=== PATIENT | female | born 1970 | race Caucasian/White ===

== ENCOUNTER → 2018-11-17 | Outpatient (CLI) | payer OTHER ==
[~2018-11-17] VITALS: Ht 292.1 cm; Wt 72.0 kg
[~2018-11-17] MED LIST: AMBIEN 5 MG TABL5 M1 PO; CELEBREX 200 M200 MG PO; FISH OIL 1,0001 EAC1 PO; HUMIRA PEN40 MG/0.4 SUBQ; LEVONORGESTREL1 EAC1 PO; LEXAPRO 10 MG T10 M2 PO; LIALDA1.2 GM PO; MULTI VITAMIN1 EACH PO
--- NOTE | ~2018-11-17 | HPC ---
[facility] [place] [address] PAIN MANAGEMENT CONSULTATION Name: WHITEGERMAN B Room #: [facility].#: [id number] Admission: 11/17/18 ������������������ Attend Phys: Sim Kilgore MD Discharge: ������������������ Date of : 74 Report #: [id number] THIS REPORT FOR: //name// CC: [facility] physician/PCP Dandre Kilgore DATE OF SERVICE: 11/17/2018 CHIEF COMPLAINT: Lumbosacral pain with some radiation into the hip. HISTORY OF PRESENT ILLNESS: The patient is a karl 48-year-old whom I am seeing today at the request of Dr. Dandre Quintero. She has been dealing with low back pain for about 2 years. She describes it as an exhausting debilitating aching, tender, gnawing sensation across her lumbosacral segment that she scores as a 6/10. It is made worse with sitting, any sort of impact exercise or spending too much time resting or sleeping. In fact, she says too much of any activity seems to make her back feel worse. She has tried Advil with limited improvement. She is extremely active. 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 A plain film x-ray report is available for my review. I was not able to look at the actual x-rays. She has a moderate disk space endplate degenerative change at L4-L5 and mild facet osteoarthritis and at L5-S1 there is a marked intervertebral disk space degenerative change with mild facet osteoarthritis. The facet changes appear to be quite minimal. MEDICATIONS: Humira, Lialda, Lexapro, control pills, vitamins, turmeric and zolpidem. ALLERGIES: None. PAST MEDICAL HISTORY: Positive for ulcerative colitis. She has had favorable response to the Humira. She has a history of gastroesophageal reflux disease without esophagitis, migraine, unspecified and has suffered a single episode of major depressive disorder in the past. 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 She denies use of tobacco, drinks alcohol once a week in a social setting. Impacted pain scores are high. She scores 7/10 for general activity, mood, walking, sleep and enjoyment of life. PHYSICAL EXAMINATION: A pleasant female, 5 feet 5 inches, 158 pounds, BMI of 28.4, blood pressure 120/86, heart rate 90, respirations 16, O2 sat 90. She is able to independently move from sitting to standing position, [place] [address] PAIN MANAGEMENT CONSULTATION Name: WHITEGERMAN Room #: [facility]#: [id number] Admission: 11/17/18 ������������������ Attend Phys: Sim Kilgore MD Discharge: ������������������ Date of : 74 Report #: [id number] antalgic features to her gait. She has excellent range of motion of the lumbar spine with some increase in pain in flexion, more so than in extension. Extension actually releases some pain. There is no tenderness around the sacroiliac joints. There is mild tenderness across the lumbosacral segment to palpation. There is no muscle spasm appreciated. Straight leg raising is negative. Sensation and strength are normal within the lower extremities. IMPRESSION: Axial low back pain. By exam, this appears to be more discogenic than facet. I would recommend an epidural steroid injection as a trial, but would first give her a short course of a nonsteroidal anti-inflammatory drug. We discussed celecoxib 200 mg once daily as she has ulcerative colitis. She has been told by her cvicu rn, Dr. Helder Pearl, that she could use some NSAIDs. If I was going to use one, I would consider the celecoxib for its once a day dosing in its selectivity. She can take this both p.r.n. and on a daily basis if the pain is severe. We discussed at length the side effects associated with the use of anti-inflammatory medications. Epidural injection if it is helpful should provide early relief with a good duration of response. I plan to see her back in a couple of weeks for the injection. ��������������������������������������������� ���������������������������������������� By: ��������������������������������������������� [id number] Sim Kilgore MD /nt
[2018-11-17 15:31] VITALS: BP 120/86
--- NOTE | 2018-11-17 15:51 | NUR ---
Pain Clinic Assessment: 1. History of Osteoarthritis: Not Applicable History of Rheumatoid Arthritis: Not Applicable 2. Height: 5 ft. 55 in. 292.1 cm. Weight: 158.8 lb. oz. 72.031 kg. Patient's BMI: 8.4 3. Vital Signs: BP: 120/86 Pulse: 90 Resp: 16 Temp: 02 Sat: 99 ECG Mon: 4. Pain Intensity: 6 5. Fall Risk: Dizziness: N Needs help standing or walking: N Fallen in the last 3 months: N Fall risk comments: 6. Patient on Blood Thinner: None 7. History of Hypertension: N 8. Opioid Therapy greater than 6 weeks: N Opiate Contract Signed: 9. Risk Assessment Tool Provided: MODERATE RISK 01/02 10. Functional Assessment Tool: 11. Recreational Drug Use: Never Drug Type: Tobacco Use: Never Smoker Tobacco Type: Amount or Packs/day: How Many Years: Alcohol Use: Yes Frequency: Weekly Quant: 1
== END ==
LOC: PAIN 11-13 14:09
DX: M47.817 Spondylosis without myelopathy or radiculopathy, lumbosacral region (principal); K21.9 Gastro-esophageal reflux disease without esophagitis; G43.909 Migraine, unspecified, not intractable, without status migrainosus; F32.9 Major depressive disorder, single episode, unspecified; Z79.899 Other long term (current) drug therapy

== ENCOUNTER → 2018-12-01 | Outpatient (CLI) | payer OTHER ==
[~2018-12-01] VITALS: Ht 165.1 cm; Wt 72.8 kg
--- NOTE | ~2018-12-01 | HPC ---
[facility] [address] [address] PAIN MANAGEMENT CONSULTATION Name: WHITEGERMAN [id number] Admission: 12/01/18 ������������������ Attend Phys: Sim Kilgore MD Discharge: ������������������ Date of : 74 Report #: [id number] THIS REPORT FOR: //name// CC: [facility] physician/PCP Sim Kilgore DATE OF SERVICE: 12/01/2018 Followup visit for lumbosacral pain with mild radiculopathy and radiation into the hip. The patient returns to the Pain Clinic today. She has seen some improvement with the use of Celebrex, which she has taken daily since her visit on 11/17/2018. Nonetheless, pain still interferes day-to-day with her activities. She scores it as a 3/10. Pain is similar to before, describes as local lumbosacral discomfort with some radiation into the hips, left worse than right. There may be a mild radicular component to this, although she does have some facet osteoarthritis, most prominent at L4-L5 and at L5-S1. It should be also noted, however, there intervertebral disk degenerative change with endplate degenerative changes. We have suggested this may be of either a combination of radicular versus spondylitic pain. An epidural steroid injection helps many patients with this type of pain. We discussed success as meaningful improvement for a long duration of response. We have discussed the ongoing use of Celebrex. I think she should be cautious about its use and I always recommend for the use of nonsteroidal anti-inflammatory drugs, the same plan as we used with opioids and other medications, lowest effective dose and it may be taken on a p.r.n. basis. She has had no current side effects. PHYSICAL EXAMINATION: Today, she is in her sporty clothes, having completed a yoga class. She is 5 feet 5 inches, 160 pounds. Blood pressure 134/85. At last visit, her blood pressure was similar. We are not seeing elevations in blood pressure with the use of her Celebrex. Tenderness across the low back, some pain with back extension. Positive straight leg raising discomfort, increasing some pain into the hip, which is mild. IMPRESSION: Axial low back pain with some evidence of radiculopathy. There may be discogenic pain as well as some facet and nerve root involvement. RECOMMENDATION: We will try an epidural injection and see what her response is. Potential risks and benefits were reviewed in detail. PROCEDURE: L4-L5 epidural steroid injection under fluoroscopic guidance. [facility] [address] [place] [address] PAIN MANAGEMENT CONSULTATION Name: GERMAN WHITE Kemar Room #: [facility]#: [id number] Admission: 12/01/18 ������������������ Attend Phys: Sim Kilgore MD Discharge: ������������������ Date of : 74 Report #: [id number] She was taken to fluoroscopic suite, placed prone. Skin prepped with ChloraPrep. Skin anesthetized over the L4-L5 interspace. A 20-gauge Tuohy epidural needle advanced first attempt into the epidural space with loss of resistance technique. There was no blood or CSF aspirated. 1 mL of Omnipaque injected. Good spread of dye observed into the epidural space followed by 3 mL of 0.5% lidocaine mixed with 80 mg of triamcinolone. She tolerated the procedure well and was observed for 45 minutes and then discharged. Followup visit planned by phone. ��������������������������������������������� ���������������������������������������� By: ��������������������������������������������� [id number] Sim Kilgore MD /nt
[2018-12-01 15:12] VITALS: BP 134/85
--- NOTE | 2018-12-01 15:23 | NUR ---
Pain Clinic Assessment: 1. History of Osteoarthritis: Not Applicable History of Rheumatoid Arthritis: Not Applicable 2. Height: 5 ft. 5 in. 165.1 cm. Weight: 160.4 lb. oz. 72.757 kg. Patient's BMI: 26.7 3. Vital Signs: BP: 134/85 Pulse: 82 Resp: 14 Temp: 02 Sat: 100 ECG Mon: 4. Pain Intensity: 3 5. Fall Risk: Dizziness: N Needs help standing or walking: N Fallen in the last 3 months: N Fall risk comments: 6. Patient on Blood Thinner: None 7. History of Hypertension: N 8. Opioid Therapy greater than 6 weeks: N Opiate Contract Signed: 9. Risk Assessment Tool Provided: MODERATE RISK 01/02 10. Functional Assessment Tool: / 11. Recreational Drug Use: Never Drug Type: Tobacco Use: Never Smoker Tobacco Type: Amount or Packs/day: How Many Years: Alcohol Use: Yes Frequency: Quant:
== END | disposition home or self-care (01) ==
LOC: PAIN 07:00
DX: M54.16 Radiculopathy, lumbar region (principal); G89.29 Other chronic pain; Z79.899 Other long term (current) drug therapy; Z98.890 Other specified postprocedural states

== ENCOUNTER → 2019-04-02 | Outpatient (CLI) | payer OTHER ==
[~2019-04-02] VITALS: Ht 165.1 cm; Wt 73.5 kg
--- NOTE | ~2019-04-02 | HPC ---
[facility] [place] [address] PAIN MANAGEMENT CONSULTATION Name: GERMAN WHITE [facility] [id number] Admission: 04/02/19 Attend Phys: Sim Kilgore MD Discharge: Date of : 74 Report #: [id number] THIS REPORT FOR: //name// CC: [facility] physician/PCP Dandre Kilgore DATE OF SERVICE: 04/02/2019 Followup visit for lumbosacral pain with radiculopathy into the right hip. The patient returns to pain clinic today hoping for a repeat lumbar epidural injection. I performed an injection for her on 12/01/2018. She had nearly 2 months of excellent, nearly complete pain relief. She is able to return to many of her impact activities that she enjoys so. 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 She enjoys exercising and anticipates an upcoming trip to [place] where she will be riding horses and also be working with [employer] to increase her skills as a astronomy instructor. She had hoped that she might get an epidural injection today, but understands that her insurance company will not allow her to receive one or at least will not pay for a one without a preauthorization process. We will seek preauthorization. I reviewed her previous treatment films and they demonstrate excellent positioning of an L4-L5 epidural injection. We discussed the ongoing use of Celebrex 200 mg once daily. She talked about taking more; however, I feel that the pain relieving benefits are likely not substantially increased with the doubling of her dose. She can certainly try it. There are some increased risks with a CASSIDY-2 inhibiting anti-inflammatory drugs and she should use caution. PHYSICAL EXAMINATION: GENERAL: She is in yoga clothes and pants, pleasant, alert, oriented. VITAL SIGNS: 5 feet 5 inches, 162 pounds, BMI is 27.0. Her blood pressure is 122/88, heart rate 79, respirations 16 and O2 sat 100. MUSCULOSKELETAL: She moves independently from a standing position and walks without discomfort or antalgic gait. Tenderness across the low back is noted primarily with back flexion, not extension. Extension seems to improve her low back pain. Positive straight leg raising is noted into the hip on the right. IMPRESSION: Chronic low back pain with radiculopathy, which has responded very favorably to epidural injections. I believe that her pain is likely discogenic and related to nerve root ____ and irritation. PLAN: Repeat epidural steroid injection, likely when the patient returns from [place] [address] PAIN MANAGEMENT CONSULTATION Name: GERMAN WHITE Room #: [facility]#: [id number] Admission: 04/02/19 Attend Phys: Sim Kilgore MD Discharge: Date of : 74 Report #: [id number] I have given her some precautions about altitude and exercise. By: [id number] Sim Kilgore MD /rosa maria
[2019-04-02 12:39] VITALS: BP 122/88
--- NOTE | 2019-04-02 12:56 | NUR ---
Pain Clinic Assessment: 1. History of Osteoarthritis: Not Applicable History of Rheumatoid Arthritis: Not Applicable 2. Height: 5 ft. 5 in. 165.1 cm. Weight: 162.0 lb. oz. 73.483 kg. Patient's BMI: 27.0 3. Vital Signs: BP: 122/88 Pulse: 79 Resp: 16 Temp: 02 Sat: 100 ECG Mon: 4. Pain Intensity: 7 5. Fall Risk: Dizziness: N Needs help standing or walking: N Fallen in the last 3 months: N Fall risk comments: 6. Patient on Blood Thinner: None 7. History of Hypertension: N 8. Opioid Therapy greater than 6 weeks: N Opiate Contract Signed: 9. Risk Assessment Tool Provided: MODERATE RISK 01/02 10. Functional Assessment Tool: 49/ 11. Recreational Drug Use: Never Drug Type: Tobacco Use: Never Smoker Tobacco Type: Amount or Packs/day: How Many Years: Alcohol Use: Yes Frequency: Monthly Quant: 1-2
== END ==
LOC: PAIN 06:56
DX: M54.17 Radiculopathy, lumbosacral region (principal)

== ENCOUNTER → 2019-04-16 | Outpatient (CLI) | payer OTHER ==
[~2019-04-16] VITALS: Ht 165.1 cm; Wt 73.8 kg
--- NOTE | ~2019-04-16 | HPC ---
[facility] [place] [address] PAIN MANAGEMENT CONSULTATION Name: GERMAN WHITE Room #: [facility].#: [id number] Admission: 04/16/19 ������������������ Attend Phys: Sim Kilgore MD Discharge: ������������������ Date of : 74 Report #: [id number] THIS REPORT FOR: //name// CC: [facility] physician/PCP Dandre Kilgore DATE OF SERVICE: 04/16/2019 Followup visit for lumbosacral pain with right hip radiation, lumbar radiculopathy. The patient returns to pain clinic today for the epidural injection discussed just 2 weeks ago. She made her trip to [place] and back, rode horses, did her yoga and was able to manage her pain reasonably well on that visit. She is here today for her epidural injection. Her pain score is a 7/10. Her last injection was performed at L4-L5. We have reviewed the films and she would like to proceed with an injection in the same location given her outstanding response to previous injection. IMPRESSION: Chronic low back pain with radiculopathy. She also has what may be discogenic pain or perhaps pain related to degeneration of the endplates. PROCEDURE: Epidural steroid injection under fluoroscopic guidance. DESCRIPTION OF PROCEDURE: She was taken to fluoroscopic suite for the treatment. She was placed prone, skin prepped with ChloraPrep. Skin anesthetized over the L4-L5 interspace. A 20-gauge Tuohy epidural needle advanced in first attempt in the epidural space with loss of resistance technique. There was no blood nor CSF aspirated. A 1 mL of Omnipaque injected. Good spread of dye observed into the epidural space. This was followed by 3 mL of 0.5% lidocaine mixed with 10 mg of dexamethasone. She tolerated the procedure well and was observed for 45 minutes and discharged. Followup visit as needed. ��������������������������������������������� ���������������������������������������� By: ��������������������������������������������� [id number] Sim Kilgore MD /nt
[2019-04-16 13:41] VITALS: BP 133/88
--- NOTE | 2019-04-16 13:50 | NUR ---
Pain Clinic Assessment: 1. History of Osteoarthritis: Not Applicable History of Rheumatoid Arthritis: Not Applicable 2. Height: 5 ft. 5 in. 165.1 cm. Weight: 162.6 lb. oz. 73.755 kg. Patient's BMI: 27.1 3. Vital Signs: BP: 133/88 Pulse: 82 Resp: 16 Temp: 02 Sat: 98 ECG Mon: 4. Pain Intensity: 7 5. Fall Risk: Dizziness: N Needs help standing or walking: N Fallen in the last 3 months: N Fall risk comments: 6. Patient on Blood Thinner: None 7. History of Hypertension: N 8. Opioid Therapy greater than 6 weeks: N Opiate Contract Signed: 9. Risk Assessment Tool Provided: MODERATE RISK 01/02 10. Functional Assessment Tool: 49/ 11. Recreational Drug Use: Never Drug Type: Tobacco Use: Never Smoker Tobacco Type: Amount or Packs/day: How Many Years: Alcohol Use: Yes Frequency: Quant:
== END | disposition home or self-care (01) ==
LOC: PAIN 06:53
DX: M54.16 Radiculopathy, lumbar region (principal); G89.29 Other chronic pain; Z79.899 Other long term (current) drug therapy; Z98.890 Other specified postprocedural states